=== PATIENT | female | born 1990 | race Two or more races ===

== ENCOUNTER 2018-10-06 15:12 | Emergency (ER) | payer MEDICAID ==
[~2018-10-06] VITALS: Ht 162.6 cm; Wt 72.6 kg
--- NOTE | 2018-10-06 15:14 | NUR ---
ED Nurse Note: Placed patient in treatment room. Placed patient in hospital gown. Removed patient's belongings. JOSE Guzman tech at bedside.
--- NOTE | 2018-10-06 15:23 | Emergency Room Report ---
History of Present Illness General Source: Patient (Elvis Horner DO) Present Illness HPI Patient presents with complaints initially of dizziness Patient was brought in by paramedics Reports that she was recently in assisted And has not been getting any medication patient has been noticing dark spots on her legs and arms patient feels that she has been bleeding from the inside Denies any back or flank pain Denies any auditory hallucinations however she does describe some visual hallucinations Patient reports that all the different things that she is seeing her making her feel even worse She is afraid of what she might do to herself, does not have any specific plans however is concerned about her safety (GeorgemavisElvis CORADO) Allergies: Coded Allergies: PENICILLINS (Unverified Allergy, Unknown, 10/06/18) Uncoded Allergies: PENICILLIN (Allergy, Unknown, 10/06/18) Patient History Past Medical History: see triage record Pertinent Family History: none Reviewed Nursing Documentation: PMH: Agreed; PSxH: Agreed (GeorgeElvis gamble DO) Review of Systems All Other Systems: negative except mentioned in HPI (JudithauroraElvis DO) Physical Exam Sp02 EP Interpretation: reviewed, normal General Appearance: no apparent distress Head: normocephalic, atraumatic Eyes: bilateral eye PERRL, bilateral eye EOMI ENT: hearing grossly normal, normal pharynx Neck: full range of motion, supple Respiratory: lungs clear, no respiratory distress, no retraction Cardiovascular #1: regular rate, rhythm Gastrointestinal: non tender, soft Musculoskeletal: normal inspection Neurologic: alert, oriented x3, responsive Psychiatric: other - Patient has some flight of thought shows evidence of visual hallucinations with thoughts of seen different [place] on her body, Skin: no rash, warm/dry Lymphatic: no adenopathy (MarthaauroraElvis ) Medical Decision Making Diagnostic Impression: Primary Impression: Behavioral change Additional Impressions: UTI (urinary tract infection) Qualified Codes: N30.00 - Acute cystitis without hematuria Anxiety disorder Qualified Codes: F41.8 - Other specified anxiety disorders Headache Qualified Codes: R51 - Headache ER Course Patient presents initially without any complaints of suicidal or homicidal thoughts However appears to be having an acute psychotic episode, has visual hallucinations blood work and initial exam is performed for further medical clearance Patient does show signs of possible UTI Antibiotics are initiated patient is further medically stabilized and cleared requires further psychiatric consultation Labs Test 10/06/18 15:35 White Blood Count 12.5 K/UL (4.8-10.8) Red Blood Count 4.92 M/UL (4.20-5.40) Hemoglobin 14.5 G/DL (12.0-16.0) Hematocrit 41.0 % (37.0-47.0) Mean Corpuscular Volume 83 FL (80-99) Mean Corpuscular Hemoglobin 29.4 PG (27.0-31.0) Mean Corpuscular Hemoglobin Concent 35.3 G/DL (32.0-36.0) Red Cell Distribution Width 11.4 % (11.6-14.8) Platelet Count 392 K/UL (150-450) Mean Platelet Volume 4.9 FL (6.5-10.1) Neutrophils (%) (Auto) 79.8 % (45.0-75.0) Lymphocytes (%) (Auto) 14.4 % (20.0-45.0) Monocytes (%) (Auto) 4.7 % (1.0-10.0) Eosinophils (%) (Auto) 0.4 % (0.0-3.0) Basophils (%) (Auto) 0.6 % (0.0-2.0) Urine Color Pale yellow Urine Appearance Clear Urine pH 7 (4.5-8.0) Urine Specific [place] 1.010 (1.005-1.035) Urine Protein 1+ (NEGATIVE) Urine Glucose (UA) Negative (NEGATIVE) Urine Ketones 1+ (NEGATIVE) Urine Blood 2+ (NEGATIVE) Urine Nitrite Positive (NEGATIVE) Urine Bilirubin Negative (NEGATIVE) Urine Urobilinogen Normal MG/DL (0.0-1.0) Urine Leukocyte Esterase 1+ (NEGATIVE) Urine RBC 5-10 /HPF (0 - 2) Urine WBC 2-4 /HPF (0 - 2) Urine Squamous Epithelial Cells Few /LPF (NONE/OCC) Urine Bacteria Moderate /HPF (NONE) Urine HCG, Qualitative Negative (NEGATIVE) Sodium Level 142 MMOL/L (136-145) Potassium Level 3.5 MMOL/L (3.5-5.1) Chloride Level 103 MMOL/L (98-107) Carbon Dioxide Level 27 MMOL/L (21-32) Anion Gap 12 mmol/L (5-15) Blood Urea Nitrogen 7 mg/dL (7-18) Creatinine 0.8 MG/DL (0.55-1.30) Estimat Glomerular Filtration Rate > 60 mL/min (>60) Glucose Level 120 MG/DL (74-106) Calcium Level 9.5 MG/DL (8.5-10.1) Total Bilirubin 0.2 MG/DL (0.2-1.0) Aspartate Amino Transf (AST/SGOT) 19 U/L (15-37) Alanine Aminotransferase (ALT/SGPT) 32 U/L (12-78) Alkaline Phosphatase 80 U/L (46-116) Total Protein 8.1 G/DL (6.4-8.2) Albumin 4.1 G/DL (3.4-5.0) Globulin 4.0 g/dL Albumin/Globulin Ratio 1.0 (1.0-2.7) Salicylates Level 1.5 ug/mL (2.8-20) Urine Opiates Screen Negative (NEGATIVE) Acetaminophen Level < 2 MCG/ML (10-30) Urine Barbiturates Screen Negative (NEGATIVE) Phencyclidine (PCP) Screen Negative (NEGATIVE) Urine Amphetamines Screen Negative (NEGATIVE) Urine Benzodiazepines Screen Negative (NEGATIVE) Urine Cocaine Screen Negative (NEGATIVE) Urine Marijuana (THC) Screen Negative (NEGATIVE) Serum Alcohol < 3 mg/dL (Elvis Horner DO) ER Course Please see above note. Patient evaluated by me. She denies suicidal ideation. She's complaining about headache and feeling of "seizure" type tingling in her extremities. She' s also stating that her veins are feeling strange because of that seizure like feeling in her arms. She denies loss of consciousness. She denies ever being suicidal. Ordered Tylenol and Ativan. Based on this evaluation request for psychiatric evaluation as she doesn't appear to meet criteria for psychiatric admission at this time. Cleared by Dr. Sorensen. Discussed treatment plan with patient including follow-up. Patient stable for outpatient observation and treatment. (Cesar Carter MD) Last Vital Signs Date Time Temp Pulse Resp B/P (MAP) Pulse Ox O2 Delivery O2 Flow Rate FiO2 10/07/18 12:22 98.6 80 16 98/65 97 Room Air Status: improved (Cesar Carter MD) Disposition: HOME, SELF-CARE Condition: Improved Scripts Trimethoprim/Sulfamethoxazole 160/800* (BACTRIM DS TABLET*) 1 Each Tablet 1 TAB ORAL Q12H, #14 TAB 0 Refills Prov: Cesar Carter MD 10/07/18 Elvis Horner DO October 06, 2018 15:23 Cesar Carter MD October 07, 2018 08:05
[2018-10-06] MEDS ORDERED: PROZAC10 MG ORAL (15:28)
[2018-10-06] MEDS ORDERED: LORazepam Inj 2mg/ml 1ml IV ONE (15:30)
--- NOTE | 2018-10-06 15:30 | NUR ---
ED Nurse Note: pt. was BIBA from home with behaivioral ideations that blood is running out of her head where she had old wound, ,no SI/HI present no hallusinations at this time, sitter was ordered for pt.'s safety, pt's personal belongings placed in locker #3, blood and urine sent to labs, pt. is compliant with treatments, given IV ativan
[2018-10-06 15:47] VITALS: BP 126/87
[2018-10-06 16:00] LABS: BASOPHILS % (AUTO) 0.6 % (0.0-2.0); EOSINOPHILS % (AUTO) 0.4 % (0.0-3.0); HEMOGLOBIN 14.5 G/DL (12.0-16.0); LYMPHOCYTES % (AUTO) 14.4 % (20.0-45.0); MEAN CORPUSCULAR VOLUME 83 FL (80-99); MONOCYTES % (AUTO) 4.7 % (1.0-10.0); NEUTROPHILS % (AUTO) 79.8 % (45.0-75.0); PLATELET COUNT 392 K/UL (150-450); RED BLOOD COUNT 4.92 M/UL (4.20-5.40); RED CELL DISTRIBUTION WIDTH 11.4 % (11.6-14.8); WHITE BLOOD COUNT 12.5 K/UL (4.8-10.8)
[2018-10-06 16:03] LABS: APPEARANCE,URINE CLEAR; BILIRUBIN, URINE NEGATIVE (NEGATIVE); COLOR,URINE PALE YELLOW; GLUCOSE, URINE (UA) NEGATIVE (NEGATIVE); KETONES,URINE 1+ (NEGATIVE); LEUKOCYTE ESTERASE ,URINE 1+ (NEGATIVE); NITRITE,URINE POSITIVE (NEGATIVE); PH,URINE 7 (4.5-8.0); PROTEIN,URINE 1+ (NEGATIVE); UROBILINOGEN,URINE NORMAL MG/DL (0.0-1.0)
[2018-10-06 16:06] LABS: ANION GAP 12 mmol/L (5-15); BLOOD UREA NITROGEN 7 mg/dL (7-18); CALCIUM 9.5 MG/DL (8.5-10.1); CARBON DIOXIDE 27 MMOL/L (21-32); CHLORIDE 103 MMOL/L (98-107); CREATININE 0.8 MG/DL (0.55-1.30); POTASSIUM 3.5 MMOL/L (3.5-5.1); SODIUM 142 MMOL/L (136-145)
--- NOTE | 2018-10-06 16:08 | NUR ---
ED Nurse Note:pt. vomited, and was given MD nina notified
[2018-10-06 16:11] LABS: ALANINE AMINOTRANSFERASE 32 U/L (12-78); ALBUMIN 4.1 G/DL (3.4-5.0); ALKALINE PHOSPHATASE 80 U/L (46-116); ASPARTATE AMINO TRANSFERASE 19 U/L (15-37); BILIRUBIN,TOTAL 0.2 MG/DL (0.2-1.0)
[2018-10-06] MEDS ORDERED: Bactrim-DS 1 tab ORAL ONE (16:30)
[2018-10-06 18:28] VITALS: BP 122/83
--- NOTE | 2018-10-06 19:00 | NUR ---
NURSE NOTES:patient report received Shavon Tolbert present no hallucination ideation at this time vital signs stable , afebrile . spot billing clerk s/s of distress noted . will continue to monitor. Addendum: 10/07/18 at 0701 by KRUPA SANTOS LVN patient no s/s of distress notrd at this time . will continue to monitor .
--- NOTE | 2018-10-06 19:04 | NUR ---
HAND-OFF: Report given to Shavon.
[2018-10-06 19:15] VITALS: BP 121/79
[2018-10-06 20:00] VITALS: BP 119/76
[2018-10-06 21:35] VITALS: BP 119/70
[2018-10-06 23:45] VITALS: BP 103/67
[2018-10-07] VITALS (7 sets, daily range): BP systolic 97–110; BP diastolic 65–72
[2018-10-07] MEDS ORDERED: LORazepam 0.5mg tab ORAL ONE (08:00)
--- NOTE | 2018-10-07 08:09 | NUR ---
ED Nurse Note: pt is on bed, calm and comfortably laying down on left side lying position. pt able to verbalize feelings, pt complaining of 8/10 ps headache, pt stated she feels anxious about the headache from her past head injury. seen by brittany with orders made and carried out. pt medicated and tolerated well. sitter on bedside. will continue to monitor.
--- NOTE | 2018-10-07 10:37 | NUR ---
ED Nurse Note: pt is sleeping comfortable on bed, calm. no complaint at the moment. sitter on bedside. vs with normal limit. will continue to monitor.
[2018-10-07] MEDS ORDERED: BACTRIM DS TAB1 EAC1 ORAL (12:07)
--- NOTE | 2018-10-07 12:20 | NUR ---
ED Nurse Note: ermd on bedside talking with the client regardng the discharge plan. patient is alert and oriented x 4. no complaint of pain. sitter on bedside. will continue to monitor.
--- NOTE | 2018-10-07 12:22 | NUR ---
ER DISCHARGE NOTE: Patient is cleared to be discharged per ERMD, pt is aox4, on room air, with stable vital signs. pt was given dc and prescription instructions, pt was able to verbalize understanding, pt id band and iv site removed without complications. pt is able to ambulate with steady gait. pt took all belongings. pt asked for a map going to [facility] and provided, map instruction explained and pt able to verbalized understanding. pt stated she feels fine now, she doesnt feel worried as verbalized by the pt.
--- NOTE | 2018-10-08 04:00 | Consultation ---
DATE OF CONSULTATION: 10/07/2018 CONSULTING PHYSICIAN: Yevgeniy Del Cid M.D. HISTORY: This is a 28-year-old female with a history of depression and anxiety. She came to emergency room due to headache and shaking in her lower extremities and feeling "shocks" in her legs. Psychiatry was consulted as the patient initially said that she has thoughts of doing something to herself; however, she denied it to the other nurses as well as Dr. Carter. The patient has anxiety. No suicidal or homicidal ideation. The patient would like to be discharged and go to a psychiatric hospital. PAST PSYCHIATRIC HISTORY: Anxiety. She is not on any psychotropic medication. Currently, has a psychiatrist that she sees outside of the hospital. PAST MEDICAL HISTORY: Headaches. ALLERGIES: No known drug allergies. SUBSTANCE ABUSE HISTORY: She denied any history of illicit drug use or alcohol. MENTAL STATUS EXAMINATION: The patient is alert and oriented times self, place, and situation. Mood is anxious. Affect is full range. Congruent with mood. Thought process is linear and goal oriented. Thought content, no suicidal or homicidal ideation. Insight and judgment are fair. Cognition is intact. ASSESSMENT: [place] I Anxiety disorder. [place] II Deferred. [place] III As above. [place] IV Mild to moderate. [place] V 50. PLAN: 1. The patient is not in any danger to self or others. 2. The patient is not suicidal. 3. The patient does not meet the criteria for 5150. 4. The patient will be discharged with follow up with a psychiatrist. Yevgeniy Del Cid M.D. DR: BILLY JOB#: [id number] CC:
== END 2018-10-07 12:22 | disposition home or self-care (01) ==
LOC: EDBD 15:12 → EMR 15:53
DX: F91.9 Conduct disorder, unspecified (principal); R51 Headache; Z88.0 Allergy status to penicillin; N30.00 Acute cystitis without hematuria; F41.8 Other specified anxiety disorders
CPT/HCPCS: 36415; 80053; 80307; 80329; 81003; 81025; 85025; 87086; 87181; 96374; 96375; 99284; J2405